=== PATIENT | male | born 2000 | race Caucasian/White ===

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

== ENCOUNTER 2020-01-13 09:00 | Outpatient (RCR) | payer MEDICAID, SELFPAY ==
--- NOTE | 2020-01-13 09:00 | BH.SGPN.GN ---
Behaviors/Verbalizations/Mental Status: []Client alert and oriented, neatly dressed. Eye contact fair. Motor activity appropriate. Speech within normal limits. Affect congruent, mood anxious. Thoughts linear, logical, no signs of hallucinations or delusions. Reviewed client?s symptom tracker, no suicidal ideations, risk, or plan as of 01/13/20. Client Response/Progress/Benefit: []Client responded well to session, engaged and participated throughout discussion. Client did not identify an emotion for group, as it was his first day of IOP. Client shared a goal for IOP is to increase his social skills. Client wrote down many things as he was trying to find things to focus on throughout group as client mentioned he has not been around many people recently, so all the group members talking was a little overwhelming. Client benefited from group and progress noted as client opened up to other group members about stressors and established rapport with other group members. Client will continue IOP to increase social skills, develop healthy coping skills, and improve daily functioning. Narrative Note: []
--- NOTE | 2020-01-13 12:34 | BH.NA_ITS ---
Physical Data - Height/Weight Height: 1.8 m Weight:: 80.739 kg Weight in Pounds: 178.0 lbs Current Medication Compliance - Medication Compliance Do you take your medication as prescribed?: Yes Nutritional History - Appetite Nutritional Instructions:: If client shows signs of a swallowing problem, weight change of 10 pounds or more in the last month, or is on a diabetic diet, the physician will review and request a dietitian consult, as appropriate. All unintentional weight loss will be referred to the physician for decision on need for dietitian consult. Describe your appetite:: Good Functional Assessment - Sleep Pattern Describe any problems with sleeping: Client states prior to starting IOP, he was sleeping in late daily and sleeping about 12 hours per day. - Activities Motor Activity:: Functional Sensory/Communication Assess - Vision Problems Do you have any vision problems?: Glasses - Communication Problems Do you have difficulty understanding what people are saying?: No What is your primary language?: Chinese Medical Problems/History - Pain Assessment Do you have acute or chronic pain?: No - Additional History Additional comments:: hx depression/anxiety, denies other history Surgical History - Surgical History Have you had any surgeries? If so, list type and date:: No Substance Abuse - Substance Abuse Please describe substance abuse in the last 30 days:: Client states he drinks beer one time per week. Client occasionally smokes cigars. Client states he smokes marijuna every other day. Client drinks coffee daily. Mental Status Summary - Mental Status Significant Findings/Observations on Appearance and Mood:: Client is alert and oriented x 4. Client is seen via telehealth due to COVID19 pandemic. Client appears casually groomed. Client is cooperative. Client's voice is normal rate and volume. Client appears mildly depressed. Client makes logical associations. Client denies delusions/hallucinations. Client denies SI. Suicide Assessment - Suicidal Ideation Are you currently or have you been suicidal in the past?: Yes - denies SI this day Suicidal Intentional Rating Scale (SIRS): Suicidal thoughts (past) Physician Notification: If Active suicidal thoughts/Will not contract for safety is checked, contact physician and document in the Physician Notification section below. Past Psychiatric History - MH Treatment Hx Past Psychiatric Medications:: Clarissa Curry Age of first mental health symptoms: Client states he was 12-13 when first diagnosed with depression/anxiety. Describe (age, circumstance, etc) any past hospitalizations: Client states he was first hospitalized at [facility] in 2014, and again in 2018 for SI. Client has two suicide attempts. Current providers for mental health treatment (counselor, psychiatrist, case management coordinator, etc.): psychiatry at [facility]. Fall Risk Assessment - Age Age: Less than 60 - Mental Status Mental Status: Willing & able to ask for assistance when needed - Physical Status Physical Status: No problems - Impairments Impairments: None - Elimination Elimination: Continent AND independent - Gait or Balance Gait or Balance: Walks independently - Hx of Falls History of falls in the past 6 months: No known history - Medications/Substances Psychotropics:: Antidepressants Medications/substances used within the past 24 hours or ordered to administer: 1-2 of the medications/substances listed above - Total Score Total Points:: 1 RN Summary of Impressions - Impressions Recommendations: Include psychiatric and medical issues, treatment planning recommendations, and discharge planning needs. 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 Discussed with client he should find adult PCP. - Level of Care How do the client's current symptoms and functional deficits support need for this level of care?: Client was referred to IOP by crisis. Client states he called the crisis line after quitting his most recent job. Client states due to his mental health over the last several months, he has been unable to keep a job. Client states he just recently quit his job that he had only had for about 2 weeks because he can't control my thoughts/emotions. Client states he wants to work to be socially acceptable. Client states money is a stressor because without a job, his fiancial state is hard. Client reports he was having panic attacks at work, stating he would get short of breath, having racing thoughts and get shaky. Client endorses increased sleep, decreased energy, hopelessness, worthlessness, anhedonia, and erratic moods. Client denies SI. IOP will promote gains and prevent further decompensation while providing social support and skills training.
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
--- NOTE | 2020-01-13 13:25 | BH.PSY.EVA_ITS ---
Initial Treatment Plan - Patient Information Visit Information: ADMISSION DATE: EXPECTED LOS: 4-6 weeks - Problems/Symptoms Problem #1:: Depression Symptom:: Sadness, hopelessness, decreased concentration, suicidal ideation, pa ssive thoughts, hypersomnia Problem #2:: Anxiety Symptom:: social discomfort, rumination, worry
--- NOTE | 2020-01-15 09:05 | BH.SGPN.GN ---
Behaviors/Verbalizations/Mental Status: [] Eye contact is good. Motor activity is appropriate. Appearance is causal. Speech is Appropriate. Mood is euthymic. Affect is full. Thoughts are linear and logical. No evidence of psychosis. Reviewed daily check in sheet and no reports of suicidal thoughts Client Response/Progress/Benefit: [] Pt participated at times during group discussion. Attentive. Gave appropriate feedback to peer. Check-in was very short and superficial. States feeling pretty good this week. Increased exercise and focus per pt report. Denies any significant distress. Smiling. Progress reported per pt report. Benefited from support and encouragement. Will continue in IOP to increase healthy coping, improve functioning, and prevent decompensation. Narrative Note: [] This psychotherapy group was provided via telehealth using two-way, real-time interactive telecommunication technology between the patients and the provider.?The interactive telecommunication technology included audio and video.? ?The patient was offered telemedicine as an option for care delivery during the COVID-19 pandemic and consented to this option. ?Patient location: [place] ?Provider located at [facility]
--- NOTE | 2020-01-15 10:15 | BH.SGPN.GN ---
This psychotherapy group was provided via telehealth using two-way, real-time interactive telecommunication technology between the patients and the provider.?The interactive telecommunication technology included audio and video.? ?The patient was offered telemedicine as an option for care delivery during the COVID-19 pandemic and consented to this option. ?Patient location: [place] ?Provider located at [facility] Behaviors/Verbalizations/Mental Status: []Client alert and oriented, casually dressed and groomed. Eye contact fair. Motor activity appropriate. Speech within normal limits. Affect constricted, mood dysthymic. Thoughts linear, logical, no signs of hallucinations or delusions. Client Response/Progress/Benefit: []Pt passive participant AEB pt providing limited input during discussion, however did complete worksheet and appeared to actively listen to peers. Pt seemed to connect with others during discussion about the positives of anxiety. Pt stated his physical symptoms of anxiety include: stomach ache, muscles tension and shut down. Pt seemed to benefit from increased understanding how avoidance behaviors can worsen anxiety in the lobsterman. Pt's first week in IOP. Pt to continue IOP to improve daily functioning, increase healthy coping and prevent decompensation. Narrative Note: []
--- NOTE | 2020-01-15 13:20 | BH.COMM ---
Communication Note - Communication with Client Communication Note: Pt signed off mid-way through 3rd group today. Reached out and spoke with patient. Denies distress. States I was tired and I didn't think I was going to be able to get anything from group. States he signed off and went to sleep. Engagement in group is limited.
--- NOTE | 2020-01-18 13:22 | BH.COMM ---
Communication Note - Communication with Client Communication Note: Pt signed into group for a short time this AM. He did not respond or engage in group or with therapist via chat. Signed off and did not return. He did this last week as well noting at that time that he was tired. This appears to be an obstacle for pt.
--- NOTE | 2020-01-19 09:10 | BH.SGPN.GN ---
Behaviors/Verbalizations/Mental Status: [] Eye contact is good. Motor activity is appropriate. Appearance is disheveled. Speech is Appropriate. Mood is depressed. Affect is flat. Thoughts are linear and logical. No evidence of psychosis. Reviewed daily check in sheet and no reports of suicidal ideations or intent. Client Response/Progress/Benefit: [] Pt spoke when prompted. Attentive. Superficial check-in. Denies any significant stressors or distress. He did talk more about her past and reasons for entering IOP. Talked about how his anxiety and depression have impacted his recent job and his functioning. Reports being hopeful today. Progress noted per pt report. Benefited from group support, encouragement, and feedback. Will continue in [facility] to maintain safety, increase health coping, and improve functioning. Narrative Note: [] This psychotherapy group was provided via telehealth using two-way, real-time interactive telecommunication technology between the patients and the provider.?The interactive telecommunication technology included audio and video.? ?The patient was offered telemedicine as an option for care delivery during the COVID-19 pandemic and consented to this option. ?Patient location: [place] ?Provider located at [facility]
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
--- NOTE | 2020-01-19 10:25 | BH.MTP ---
[facility] Treatment Plan - Patient Information Program Physician:: Dr. 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 Description of Barriers: Hx of poor treatment and medication compliance. Utilizes sleep as coping skill which impacts consistenty in IOP program. Limited healthy coping skills. Functional Impact: Due to depression pt reports difficulty maintaining work. - Objectives Objective #1 Stated Objective: Identify and replace 3-4 negative self-talk messages that reinforce depressive symptoms. Interventions: Through groups and individual therapy, pt. will be provided with education on cognitive distortions, mistaken beliefs, and identifying and combating negative self-talk. Therapist will help pt. explore connection between thoughts, feelings, and actions. Discharge Criteria: Pt. will be able to identify 2-3 negative thinking patterns and be able to effectively stop, challenge, or cope with those negative thoughts. Target Date: 02/24/20 Review Date: 02/13/20 Objective #2 Stated Objective: Develop and maintain healthy sleep schedule. Identify obstacles to using sleep as coping skills. Indentify 3 healthy coping skills to utilize instead of sleeping to escape Interventions: Through individual and group intervention will provide pt with education on healthy coping skills and importance of healthy sleep schedule in mental health. Discharge Criteria: Pt will be able to identify 3 obstacles to healthy sleep and 3 coping skills to utilize instead of sleep. Will implement health sleep routine. Target Date: 02/24/20 Review Date: 02/13/20 Problem/Goal #2 - Problem/Goal #2 Stated Goal:: Client will reduce overall frequency, intensity, and duration of the anxiety so that daily functioning is not impaired. Description of Barriers: Hx of poor treatment and medication compliance. Utilizes sleep as coping skill which impacts consistenty in IOP program. Limited healthy coping skills. Functional Impact: Mental health symptoms including anxiety have impacting functioing, motivation, and ability to maintain a job. - Objectives Objective #1 Stated Objective: Client will learn and implement 2-3 calming skills to reduce overall anxiety and manage anxiety symptoms. Interventions: Through individual and group counseling pt. will be provided with education on anxiety and effective coping skills. Will explore more in-depth with pt. cause and triggers to anxiety as well as obstacles to overcoming anxiety. Discharge Criteria: Client will have achieved this goal when can verbalize at least 2 calming skills and implement those skills. Also develop a concrete plan to manage anxiety prior to and during work. Target Date: 02/24/20 Review Date: 02/13/20
--- NOTE | 2020-01-19 12:31 | BH.MDN ---
Multi-Disciplinary Note - Note 45-min Individual Time Started:: 10:30 Date: 01/19/20 Purpose of session/treatment goals addressed:: Met with pt finalize treatment plan, review hx, and work on obstacles to consistently attending IOP program. Eye Contact:: Fair Motor Activity:: Appropriate Appearance:: Disheveled Speech:: Appropriate Mood:: Depressed Affect:: Flat Thoughts:: Linear, Logical, No evidence of hallucinations/delusions noted Staff Interventions:: Utilized SC to elicit change behaviors. Worked with pt to identify goals and finalize treatment plan. Client Response:: Pt admits to struggling with consistent attendance and engagement in IOP. Reports primary obstacle is being tired. Shared that his sleep schedule is off and he has significant difficulty getting up and functioning in the AM. States I need to be better at this. Has desire to change sleep schedule, increase motivation, and not feel the need to sleep throughout the day. Identified cannabis use and using sleep as coping skill as main obstacles. Smokes 2-3 x daily. Agreeable to decreasing this amount to 1x daily. Verbalized motivations and negative impact of cannabis. He beleives that cananbis does help him get out of his head and manage ruminations and negative thoughts. States when I get in my tunnel vision it helps me see the positives and that things aren't that bad. Insight that it would be beneficial to find alternative ways to manage thoughts aside from cannabis as this impacts his motivation and makes him tired. Struggles with motivation to choose path which is more challenging (staying active, accomplishing goals, and attending IOP) rather than easier and more comfortable choice of sleeping the day away. Has attempted to be motivated over the past week however limited success. He denies any overhwhelming depression or suicidal ideations, however his mood continues to impact functioning (sleeping to cope with stressors). Risks/Concerns:: No risks or concerns noted. Denies suicidal ideations, plan, or intent. Progress Toward Goals/Plan:: Limited progress. Struggling with consistent attendance in IOP due to being too tired. Able to identify obstacles today however limited motivation to make changes in his daily life. Plan is to continue in IOP with increased individual sessions to increase motivation and accountability. Time Stopped:: 11:20
--- NOTE | 2020-01-22 09:05 | BH.SGPN.GN ---
Behaviors/Verbalizations/Mental Status: [] Eye contact is good. Motor activity is appropriate. Appearance is disheveled. Speech is Appropriate. Mood is depressed. Affect is flat. Thoughts are linear and logical. No evidence of psychosis. No reports of suicidal thoughts. Client Response/Progress/Benefit: [] Pt participated when prompted. Shared that he had a job interview and was able to get the job. Reports that he has been able to shift his focus and not neglect things in his life. He reports improved mood and motivation stating I'm trying not to sleep my whole day away. Denies any significant distress currently. Progress noted per pt report. Will continue in IOP to maintain safety, prevent decompensation, and increase healthy coping skills. Narrative Note: [] This psychotherapy group was provided via telehealth using two-way, real-time interactive telecommunication technology between the patients and the provider.?The interactive telecommunication technology included audio and video.? ?The patient was offered telemedicine as an option for care delivery during the COVID-19 pandemic and consented to this option. ?Patient location: [place] ?Provider located at [facility]
--- NOTE | 2020-01-22 15:46 | BH.COMM ---
Communication Note - Communication with Client Communication Note: Pt signed off from 2nd group and did not return. He has done this on several occasions in the past due to urge to go to sleep. He was not in any distress this AM and reported being motivated and future-oriented. Despite conversation last week about importance of not signing off mid-program to go to sleep he continue to do this. Plan to discharge as he has not been able to participate in program consistently.
--- NOTE | 2020-01-28 16:49 | BH.COMM_ITS ---
Communication Note - Communication with Client Communication Note: Pt did not show for scheduled IOP session yesterday. C ontinues to struggle with attendance related to sleep. Emailed this afternoon stating I want to do group but I can't wake up. I wanted to have a job, but I couldn't wake up. Could I go into group tomorrow and talk to ya? I really need to figure something out Informed patient that he could join group tomorrow and discuss his struggles with the group and the could help problem solve. Also informed pt that I will be out of the office tomorrow however he could reach out to this therapist if he wanted to talk by 430pm today. He did not. Excessive cannabis use has increased sleep and decreased motivation. Pt admits to this. Had goal to decrease use however unclear if he followed through.
--- NOTE | 2020-02-01 13:04 | BH.COMM ---
Communication Note - Communication with Client Communication Note: Informed that pt did not show for group on 01/28/20. This is several no shows for patient. Reached out to set up individual session to discussion obstacles. Will discharge if patient does not respond.
--- NOTE | 2020-02-02 10:19 | BH.DS ---
Discharge Summary - Demographics Date of Admission:: 01/13/20 Discharge Date: 02/02/20 Presenting Problems at Admission:: Pt is a 19 year old male with hx of MDD and SULEIMAN. Previous psychiatric admission to [facility] in 2018 for SI. Referred to IOP by [facility] crisis team after pt called on 01/12/20 with SI after losing his job. Pt reported fleeting SI for a majority of his life. Reports the freqeuncy and intensity of SI is situational and mostly occurs when he feels he has not control over his life. Depression recently impacted functioning resulting in not attending work and eventually getting fired. Has been unable to maintain job due to MH symptoms. I wake up and feel paralyzed. Endorses increased sleep, increased appetitie, low energy, low motivation, hopelessness, and worthlessness. Anhedonia. Sleeping to pass time. Increased anxiety and panic. Erratic moods. Limited coping skills. Denied active SI, plan, or intent. Most recent suicide attempt in 2016 via OD. Reports that his thoughts are mostly passive desire to be or survival ambivalence. Denies HI or psychosis. Smokes cannabis on occasion. Due to fleeting SI, MH impacting functioning, and limited benefit from traditional outpatient recommended IOP level of care. Discharge Diagnoses:: F33.2 Major Depressive Disorder, Reason for Discharge:: Pt had several no shows in the past 2 weeks. This therapist reached out to set up time to discuss obstacles and problem-solve however he did not respond. - Treatment Progress During Treatment & Response: No progress noted. Pt only attended 4 IOP days since his admission. Poor engagment when he was present. Pt was participating virtually and would often sign off w/o explanation during 2nd or 3rd group. Would often state that he was too tired to stay in group. Pt admitted to significant use of cannabis (3x daily) which impacted his motivation and increased drowsiness. Due to poor attendance pt only met with psychiatrist and therapist on one occasion. Did not complete treatment plan goals. 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 He reports that he is on a waiting list to see therapist there as well. Did not return calls to discuss continuing in IOP or assistance with aftercare set-up Discharge Handout: Complete Discharge Handout with client on aftercare options and continuity of care.
== END 2020-02-11 23:59 ==
LOC: BHIOP 09:00
PROVIDERS: Referring Provider Psychiatry & Neurology Psychiatry; Visit Provider Psychiatry & Neurology Psychiatry
DX: F33.2 Major depressive disorder, recurrent severe without psychotic features (principal); F34.1 Dysthymic disorder; F41.8 Other specified anxiety disorders; R45.851 Suicidal ideations; F17.210 Nicotine dependence, cigarettes, uncomplicated; Z72.89 Other problems related to lifestyle; F12.90 Cannabis use, unspecified, uncomplicated; Z62.810 Personal history of physical and sexual abuse in childhood; Z62.811 Personal history of psychological abuse in childhood; Z91.5 Personal history of self-harm
CPT/HCPCS: 90792; H2012; T1002

== ENCOUNTER 2020-03-28 15:49 | Emergency (ER) | payer MEDICAID, SELFPAY ==
[2020-03-28 15:50] VITALS: BP 137/95; PULSE 54; RESP 14; TEMP 36.4; O2SAT 99; BMI 23.1
--- NOTE | 2020-03-28 16:39 | ED.DCSUM_ITS ---
- ER Visit Summary Date of Service: 03/28/20 Chief Complaint: Suicidal ideation History of Present Illness: The patient is a 19 M who does not see a primary care physician or psychiatrist. He reports that he has longstanding depression that is worsened over the past 3 weeks when he stopped taking his Zoloft. He feels much more angry than usual. He has a plan to cut himself to take his life. Review of systems: General: No fever, chills, cold sweats. Cardiovascular: No chest pain, palpitations. Respiratory: No cough, shortness of breath, dyspnea on exertion. Gastrointestinal: No abdominal pain, nausea, vomiting, diarrhea, melena, or hematochezia. Genitourinary: No dysuria, frequency, hematuria. Skin: No rash. Neuro: No headache, numbness, weakness. Physical Examination: Vitals: Stable. Afebrile. General: Well-nourished and well-developed. Head: Normocephalic atraumatic. Neck: Supple, no lymphadenopathy. No JVD. Nontender. Cardiovascular: Regular rate and rhythm. No murmurs. Respiratory: No respiratory distress. Clear to auscultation bilaterally. Abdominal: Soft, nontender, nondistended, normal bowel sounds. No guarding, rebound, or peritoneal signs. Back: Nontender. Extremities: Nontender, no edema. Skin: Normal color, no rash. Neurologic: Alert and oriented ?3. Cranial nerves II through XII are intact. Normal strength and sensation. Mental status exam: Patient appears their stated age. Good posture and grooming. Good eye contact. Normal rate, volume, and latency of speech. No homicidal ideation. No auditory or visual hallucinations. Flow of thought is logical. Insight and judgment is fair. Test Results: CBC shows segment neutrophils 74 lymphocytes of 17. Chem-7 shows a BUN of 6. Tox screen shows marijuana. Alcohol is negative. COVID-19 is negative. Emergency Department Course and Treatment: The patient is medically cleared. Patient was discussed with case management and they are seeing him now. They have also that spoken with the counseling center. Treatment Plan: Patient will be transferred to a psychiatric hospital for further evaluation and treatment. Disposition: Pending. Impression: 1. Suicidal ideation. This note was generated with M-Factoration software. It may contain incorrect words, spelling, and punctuation that were not noted in review of the chart prior to signing ED Disposition - Plan for ED Patient: Referrals: Care Physician,No Primary [Primary Care Provider] -
[2020-03-28 16:42] LABS: Absolute Lymphocyte Count 1.38 X10^3/uL (0.83-4.51); Absolute Neutrophil Count 5.9 X10^3/uL (2.0-7.7); Basophil# 0.03 X10^3/uL; Basophil% 0.4 % (0-1); Eosinophil# 0.06 X10^3/uL; Eosinophils% 0.8 % (0-5); Hematocrit 41.3 % (40-54); Hemoglobin 14.1 g/dL (13.0-16.5); Lymphocyte # 1.38 X10^3/ul (4.0); Lymphocyte % 17.3 % (19-41); Mean Corp Hgb Conc 34.1 g/dL (32-36); Mean Corpuscular Hgb 30.4 pg (27.0-32.0); Mean Platelet Vol. 10.7 fl (6.2-12.0); Monocyte# 0.57 X10^3/uL; Monocyte% 7.1 % (0-10); NRBC Flagged by Analyzer 0 % (0-5); Neutrophil # 5.91 X10^3/uL (2.7-7.7); Platelet Count 226 K/mm3 (150-450); RBC Distribution Width SD 39.1 fl (35.1-43.9); Red Blood Count 4.64 M/mm3 (4.6-6.2)
[2020-03-28 16:47] LABS: Amphetamine Urine VISTA NEGATIVE (<1000 ng/mL); Barbiturate Urine VISTA NEGATIVE (< 200 ng/mL); Benzodiazepine Urine VISTA NEGATIVE (< 200 ng/mL); Cocaine Urine VISTA NEGATIVE (< 300 ng/mL); Ecstacy Urine VISTA NEGATIVE (< 500 ng/mL); Methadone Urine VISTA NEGATIVE (< 300 ng/mL); PCP Urine VISTA NEGATIVE (< 25 ng/mL); THC Urine VISTA POSITIVE (< 50 ng/mL); Vista UDS pH Range 6
[2020-03-28 16:57] LABS: Alcohol, Blood (Medical)-Serum < 3.0 mg/dL; Anion Gap 4 (5-15); BUN 6 mg/dL (7-18); BUN/Creat Ratio 6.3 RATIO (10-20); Calcium,Total 8.9 mg/dL (8.5-10.1); Chloride 107 mmol/L (98-107); Creatinine, Serum 0.96 mg/dL (0.70-1.30); EST Glomerular Filtration Rate 107 mL/min (>60); Est Glom Filt Rate - Afr Amer 129 mL/min (>60); Estimated Creatinine Clearance 131.29 ml/min; Glucose 95 mg/dL (74-106); Potassium 3.7 mmol/L (3.5-5.1); Sodium Level 140 mmol/L (136-145)
--- NOTE | 2020-03-28 17:10 | CM.ED ---
SOCIAL WORK Referral called and faxed to [facility]. Pending review at this time. Erma Stafford, GRANITE CUTTER APPRENTICE, ELECTROTYPER APPRENTICE
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
[2020-03-28 17:54] VITALS: PULSE 65; RESP 16
--- NOTE | 2020-03-28 18:56 | CM.ED ---
SOCIAL WORK Call to [facility] to check on status of referral, spoke with [facility]. Referral still pending review. Erma Stafford, SHIPWRIGHT APPRENTICE, INTERNET MARKETING DIRECTOR
--- NOTE | 2020-03-28 19:37 | CM.ED ---
SOCIAL WORK Received call from [facility] intake department reporting no beds. Referral called and faxed to [facility]. Pending review at this time.
--- NOTE | 2020-03-28 20:07 | CM.ED ---
SOCIAL WORK Call to [facility] to verify referral received. Worker report reviewing at this time. Erma Stafford, CORK CUTTER, REPRODUCTIVE SURGEON
[2020-03-28 20:44] VITALS: BP 109/59; PULSE 61; RESP 16; O2SAT 98
--- NOTE | 2020-03-28 20:52 | CM.ED ---
SOCIAL WORK Call to [facility] to check on status of referral. Per worker, waiting for physician to call back. Will call this worker back once accepted. Erma Stafford, MANAGER ASSEMBLY, HELICOPTER DISPATCHER
--- NOTE | 2020-03-28 21:06 | CM.ED ---
Addendum entered by Judie Stafford 03/28/20 21:07: Patient and nurse updated. Original Note: SOCIAL WORK Received call back from [facility] reporting patient has been accepted. Worker requesting [facility] be faxed, along with facilities COVID-19 screening and statement of medical clearance. Requested information faxed at this time. Awaiting accepting information. [facility] to call for transport. Erma Stafford, GRAIN MILL WORKER, MASTER NAVAL PARACHUTIST
--- NOTE | 2020-03-28 21:32 | CM.ED ---
SOCIAL WORK Received call back from [facility]. Per worker, requesting patient be held till morning due to concerns with bed arrangement. Worker states does have bed available, however, the roommate patient would have is aggressive and concerns for patient's safety if accepted tonight. Updated staff. Transport to be cancelled and arranged for 8am pickle maker. ESTEPHANIA Rooney, STOREKEEPER ENGINEERING
[2020-03-28 23:00] VITALS: RESP 16
[2020-03-29] VITALS (12 sets, daily range): BP systolic 112–114; BP diastolic 65–78; PULSE 68–81; RESP 14–20; TEMP 36.8; O2SAT 99–100
== END 2020-03-29 10:25 ==
PROVIDERS: Emergency Provider Emergency Medicine
DX: R45.851 Suicidal ideations (principal); F32.9 Major depressive disorder, single episode, unspecified; F12.90 Cannabis use, unspecified, uncomplicated
CPT/HCPCS: 36415; 80048; 80307; 82077; 85025; 87426; 99285